=== PATIENT | female | born 1990 | race Caucasian/White ===

== ENCOUNTER 2023-05-13 00:14 | Emergency (ER) | payer BC ==
[~2023-05-13] VITALS: Ht 177.8 cm; Wt 68.0 kg
[2023-05-13] MEDS ORDERED: ONDANSETRON HCL/PF 4 MG/2 ML VIAL ONE ×3 (01:07→06:40)
[2023-05-13] MEDS ORDERED: MORPHINE SULFATE INJ 4 MG/ML DISP.SYRIN ONE ×3 (01:08→18:48)
[2023-05-13 01:18] LABS: BASOPHILS % (AUTO) 0.3 % (0.0-2.0); EOSINOPHILS % (AUTO) 0.3 % (0.0-6.0); HEMATOCRIT 40 % (33-45); HEMOGLOBIN 13.4 g/dL (11.5-14.8); LYMPHOCYTES # (AUTO) 1.7 K/uL (0.8-4.8); LYMPHOCYTES % (AUTO) 12.3 % (20.0-44.0); MEAN CORPUSCULAR HEMOGLOBIN 31 PG (26.0-33.0); MEAN CORPUSCULAR HGB CONC 34 g/dl (31.0-36.0); MEAN CORPUSCULAR VOLUME 91 fL (82-100); MONOCYTES # (AUTO) 0.7 K/uL (0.1-1.30); NEUTROPHILS # (AUTO) 11.5 K/uL (1.8-8.9); NEUTROPHILS % (AUTO) 82.1 % (43.0-81.0); PLATELET COUNT (AUTO) 278 K/uL (150-450); RED BLOOD CELL COUNT(AUTO) 4.39 MIL/uL (4.0-5.2); RED CELL DISTRIBUTION WIDTH 12.7 % (11.5-15.0)
[2023-05-13] MEDS: MORPHINE SULFATE INJ 4 MG/ML DISP.SYRIN IV ONE ×2 (01:21→05:01)
[2023-05-13] MEDS: ONDANSETRON HCL/PF - ER 4 MG/2 ML VIAL IV ONE ×2 (01:22→05:01)
[2023-05-13 01:26] LABS: APPEARANCE,URINE CLOUDY (CLEAR); BILIRUBIN,URINE NEGATIVE (NEGATIVE); BLOOD, URINE 3+ Ery/uL (NEGATIVE); COLOR,URINE DARK YELLOW (YELLOW); KETONES,URINE NEGATIVE (NEGATIVE); LEUKOCYTE ESTERASE ,URINE NEGATIVE (NEGATIVE); NITRITE, URINE NEGATIVE (NEGATIVE); PH,URINE 6.5 (5.0-8.0); PROTEIN,URINE NEGATIVE (NEGATIVE); UGLUCOSE NEGATIVE (NEGATIVE); UROBILINOGEN,URINE 0.2 EU/dL (0.2)
[2023-05-13 01:30] LABS: ADD URINE CULTURE NO; BACTERIA,URINE None seen /HPF (None Seen); PREGNANCY TEST URINE QUAL NEGATIVE (NEGATIVE); SQUAMOUS EPITHELIAL CELL,UR Few /HPF (None Seen); WBC,URINE 0-2 /HPF (0-3)
[2023-05-13 01:34] LABS: LACTIC ACID 2.4 mmol/L (0.4-2.0)
[2023-05-13 01:42] LABS: AMPHETAMINE, URINE NEGATIVE (NEGATIVE); BARBITURATE, URINE NEGATIVE (NEGATIVE); BENZODIAZEPINE, URINE NEGATIVE (NEGATIVE); COCCAINE, URINE NEGATIVE (NEGATIVE); OPIATE, URINE NEGATIVE (NEGATIVE); PHENCYCLIDINE SCREEN,URINE NEGATIVE (NEGATIVE)
[2023-05-13 01:43] LABS: ALANINE AMINOTRANSFERASE 55 U/L (12-78); ALCOHOL, BLOOD 3 mg/dL (0-10); ALKALINE PHOSPHATASE 52 U/L (46-116); ASPARTATE AMINOTRANSFERASE 42 U/L (15-37); BILIRUBIN,TOTAL 0.3 mg/dL (0.2-1.0); CALCIUM, SERUM 9.3 mg/dL (8.5-10.1); CARBON DIOXIDE 24 mmol/L (21-32); CHLORIDE 102 mmol/L (98-107); CREATININE 0.8 mg/dL (0.6-1.3); GLUCOSE 120 mg/dL (74-106); LIPASE 29 U/L (16-77); POTASSIUM 3.5 mmol/L (3.5-5.1); SODIUM SERUM 139 mmol/L (136-145); TOTAL PROTEIN, SERUM 7.9 g/dL (6.4-8.2); UREA NITROGEN, BLOOD 10 mg/dL (7-18)
[2023-05-13 01:45] LABS: CANNABINOID, URINE POSITIVE (NEGATIVE)
[2023-05-13] MEDS ORDERED: IOHEXOL-300 100 ML VIAL IV ONE (01:50)
[2023-05-13] MEDS ORDERED: CT SWABBABLE VALVE TRANS SET 1 EA INFUS.SET MC ONE (01:50)
[2023-05-13] MEDS ORDERED: IV NS 0.9% 250 ML IV ONE (01:50)
[2023-05-13] MEDS: IV NS 0.9% 1,000 ML IV ONE ×2 (02:00→06:10)
[2023-05-13 04:47] LABS: LACTIC ACID REFLEX 2.8 mmol/L (0.4-1.9)
[2023-05-13 04:57] LABS: BILIRUBIN,DIRECT 0.1 mg/dL (0.0-0.2)
[2023-05-13] MEDS ORDERED: PIPERACI/TAZO 3.375GM/D5W 50ML PB IV ONE (06:04)
[2023-05-13] MEDS: PIPERACILLIN /TAZOBACTAM 3.375 G in IV D5W 50 ML IV ONE (06:10)
[2023-05-13] MEDS ORDERED: HYDROMORPHONE 1 MG/1 ML DISP.SYRIN ONE ×2 (06:40→15:26)
[2023-05-13] MEDS: HYDROMORPHONE INJ 2 MG/ML DISP.SYRIN IV ONE (06:49)
[2023-05-13] MEDS: ONDANSETRON HCL/PF 4 MG/2 ML VIAL IVP ONE (06:49)
[2023-05-13] MEDS ORDERED: NORG1TAB PO (08:18)
[2023-05-13 11:48] LABS: HEMOGLOBIN 13.1 g/dL (11.5-14.8)
[2023-05-13] MEDS: HYDROMORPHONE 1 MG/1 ML DISP.SYRIN IV ONE (15:31)
[2023-05-13 18:41] VITALS: BP 138/66; TEMP 98.5; O2SAT 100
[2023-05-13] MEDS: MORPHINE SULFATE INJ 2 MG/ML DISP.SYRIN IV ONE (18:51)
== END 2023-05-13 19:18 | disposition short-term general hospital (02) ==
LOC: ER 00:18
DX: D13.4 Benign neoplasm of liver (principal); R11.10 Vomiting, unspecified; Z88.8 Allergy status to other drugs, medicaments and biological substances
CPT/HCPCS: 99285; 96365; 96361; 96375; 93005; 96376; 76700; 74178; 82248; 85025; 85027; 87040 ×2; 83605 ×2; 83690; 84703; 81001; 36415; 80053; 82962; 80320; 80307; J2270 ×3; J2405 ×5; J2543 ×2; J7060; J7050; Q9967; J1170 ×2; G0480